=== PATIENT | female | born 1995 | race Caucasian/White ===

== ENCOUNTER 2016-04-17 10:56 | Emergency (ER) | payer OTHER ==
[~2016-04-17] VITALS: Ht 152.4 cm; Wt 82.5 kg
[2016-04-17 11:07] VITALS: Ht 152.4 cm; Wt 82.5 kg
[2016-04-17] MEDS ORDERED: ACETAMINOPHEN 500 MG TAB PO STA (11:22)
[2016-04-17] MEDS ORDERED: ALBUTEROL HFA 8 GM INHALER INH ONE (11:30)
[2016-04-17] MEDS ORDERED: IBUP-1050 PO (11:39)
--- NOTE | 2016-04-17 12:06 | DIAGNOSTIC IMAGING REPORT ---
TWO VIEW CHEST CLINICAL HISTORY: Cough and fever. FINDINGS: PA and lateral chest radiographs are obtained. No prior studies are available for comparison at the time of dictation. The cardiomediastinal silhouette is unremarkable. There are low lung volumes. The lungs and pleural spaces are clear. There is no pneumothorax. The bony thorax appears intact. IMPRESSION: Low lung volumes with no active disease in the chest. Electronically signed by: Adolfo Shah M.D. 04/17/2016 12:05 PM Dictated Date/Time: 04/17/2016 12:04 PM
[2016-04-17 12:49] VITALS: BP 129/78; PULSE 83; TEMP 37; O2SAT 96
--- NOTE | 2016-04-17 17:10 | EMERGENCY ROOM VISIT NOTE ---
History Report prepared by Pedro: Selvin Smith Under the Supervision of: Dr. Adolfo Lowe M.D. First contact with patient: 11:14 Chief Complaint: FEVER Stated Complaint: FEVER,HEADACHE,SORE THROAT History of Present Illness The patient is a 20 year old female who presents to the Emergency Room with complaints of a persistent fever for the past two days. The patient also complains of sore throat, rhinorrhea, and some coughing. The sore throat is bilateral. Her cough is not productive. The patient denies any ear pain, vomiting, diarrhea, or urinary symptoms. The patient has been taking Ibuprofen and Acetaminophen for her symptoms. She had Ibuprofen at 0900 this morning. The patient does not have any sick contacts. She believes that she had the flu shot this year. The patient denies any health problems. Source of History: patient Onset: two days Position: other (global) Quality: other (febrile) Timing: other (persistent) Modifying Factors (Relieving): ibuprofen Associated Symptoms: + cough, + sorethroat, No diarrhea, No urinary symptoms , No vomiting Review of Systems See HPI for pertinent positives & negatives. A total of 10 systems reviewed and were otherwise negative. Past Medical & Surgical Medical Problems: (1) No known health problems Family History No pertinent family history Social History Smoking Status: Never Smoker Occupation Status: [employer] student Current/Historical Medications Miscellaneous Medications Ibuprofen (Advil), 200 MG PO Physical Exam Vital Signs Date Time Temp Pulse Resp B/P Pulse Ox O2 Delivery O2 Flow Rate FiO2 04/17/16 12:49 37.0 83 17 129/78 96 Room Air 04/17/16 11:07 37.6 95 18 142/87 98 Room Air Physical Exam GENERAL: Patient is in no acute distress. HEENT: No acute trauma, normocephalic atraumatic, mucous membranes moist, no throat erythema or exudate, mild nasal congestion, TMs occluded by wax, no scleral icterus. NECK: No stridor, no adenopathy, no meningismus, trachea is midline. LUNGS: Decreased breath sounds bilaterally, especially at the right base, no wheezing or rhonchi, no respiratory distress. HEART: Without murmurs gallops or rubs, regular rate and rhythm. ABDOMEN: Soft, nontender, bowel sounds positive, no hernias, no peritonitis. EXTREMITIES: No cyanosis or edema, full range of motion of all the joints without pain or difficulty, no signs for acute trauma. NEUROLOGIC: Oriented x 3, no acute motor or sensory deficits, no focal weakness. SKIN: No rash, no jaundice, no diaphoresis. Medical Decision & Procedures ER Provider Diagnostic Interpretation: X-ray results as stated below per interpretation by me and the radiologist: TWO VIEW CHEST CLINICAL HISTORY: Cough and fever. FINDINGS: PA and lateral chest radiographs are obtained. No prior studies are available for comparison at the time of dictation. The cardiomediastinal silhouette is unremarkable. There are low lung volumes. The lungs and pleural spaces are clear. There is no pneumothorax. The bony thorax appears intact. IMPRESSION: Low lung volumes with no active disease in the chest. Electronically signed by: Adolfo Shah M.D. 04/17/2016 12:05 PM Dictated Date/Time: 04/17/2016 12:04 PM Laboratory Results Test 04/17/16 11:22 Influenza Type A Antigen Neg for Influ A (NEG) Influenza Type B Antigen Neg for Influ B (NEG) Laboratory results reviewed by me. Medications Administered Medications (Trade) Dose Ordered Sig/Clair Route Start Time Stop Time Status Last Admin Dose Admin Acetaminophen (Tylenol Tab) 1,000 mg NOW STAT PO 04/17/16 11:22 04/17/16 11:23 DC 04/17/16 11:47 1,000 MG Albuterol (Ventolin Hfa Inhaler) 3 puffs NOW ONCE INH 04/17/16 11:30 04/17/16 11:31 DC 04/17/16 11:47 3 PUFFS ED Course 1117: The patient was evaluated in room C11b. A complete history and physical exam was performed. 1122: Tylenol 1000 mg PO. 1130: Albuterol 3 puffs INH. 1305: Reassessed the patient. She is doing well. I discussed the findings with her. She verbalized understanding and agreement of the treatment plan. The patient is ready for discharge. Medical Decision Differential diagnosis includes influenza, flu like illness, pneumonia, viral illness, pharyngitis, dehydration, UTI, bronchitis. The patient presents with flulike symptoms. On exam, there was no pharyngitis. She was not toxic. She was slightly febrile. Her lung sounds were diminished. Chest film did not show pneumonia. Influenza testing was negative. The patient was given oral Tylenol and albuterol via [facility]. She is being discharged with the albuterol, [id number] fever and pain control. Rest and hydration were encouraged. Her illness appears viral and seems flulike. Impression Primary Impression: Flu-like symptoms Scribe Attestation The scribe's documentation has been prepared under my direction and personally reviewed by me in its entirety. I confirm that the note above accurately reflects all work, treatment, procedures, and medical decision making performed by me. Departure Information Dispostion Home / Self-Care Referrals No Doctor, Assigned (PCP) Forms HOME CARE DOCUMENTATION FORM, IMPORTANT VISIT INFORMATION, School Instructions Patient Instructions My [facility] Additional Instructions fluids rest motrin/tylenol for fever and pain albuterol 2 puffs every 4 hours return if worsening chest film today was ok
== END 2016-04-17 13:21 | disposition home or self-care (01) ==
LOC: C.EDB 10:58 → C.EDC 13:21
DX: R50.9 Fever, unspecified (principal); J02.9 Acute pharyngitis, unspecified; R05 Cough; J34.89 Other specified disorders of nose and nasal sinuses